=== PATIENT | female | born 1950 | race Caucasian/White ===

== ENCOUNTER → 2021-09-09 | Outpatient (CLI) | payer MEDICARE ==
[2021-09-09 18:51] LABS: Basophils # (A) 0.09 X 10*3/uL (0.00-0.10); Basophils % (A) 1.2 %; Eosinophils # (A) 0.26 X 10*3/uL (0.04-0.35); Eosinophils % (A) 3.5 %; HCT 46.7 % (37.2-46.3); HGB 15.1 g/dL (12.0-15.0); Immature Grans, Automated 0.1 %; Lymphocytes # (A) 2.69 X 10*3/uL (0.90-5.00); Lymphocytes % (A) 36.6 %; MCH 30.3 pg (27.0-32.0); MCHC 32.3 g/dL (32.0-37.0); MCV 93.8 fL (80.0-97.0); Monocytes # (A) 0.57 X 10*3/uL (0.20-1.00); Monocytes % (A) 7.8 %; NRBC Per 100 WBC 0 /100 WBCS (0.0-0.0); Neutrophils # (A) 3.72 X 10*3/uL (1.80-7.70); Neutrophils % (A) 50.8 %; Platelet Count 305 X 10*3/uL (140-440); RBC 4.98 X 10*6/uL (4.10-5.20); RDW 12.7 % (11.5-14.5); WBC 7.34 X 10*3/uL (4.50-10.00)
[2021-09-09 19:04] LABS: Anion Gap 13.9 mmol/L (10.00-18.00); Blood Urea Nitrogen 10.2 mg/dL (9.0-27.0); Carbon Dioxide 21.1 mmol/L (20.0-27.5); Non-African American GFR(CKD) 94.9 (60.0-200.0); Potassium 3.9 mmol/L (3.5-5.5)
== END | disposition home or self-care (01) ==
LOC: LABPAT 10:51
PROVIDERS: ATTEND Surgery
DX: Z01.812 Encounter for preprocedural laboratory examination (principal); I99.8 Other disorder of circulatory system
CPT/HCPCS: 80051; 82565; 84520; 85025

== ENCOUNTER → 2021-09-12 | Day surgery (SDC) | payer MEDICARE ==
[2021-09-08 12:10] VITALS: BMI 26.5
[~2021-09-12] MED LIST: ALPRAZolam 0.25 MG TAB PO PRN; ASPIRIN 325 MG TAB PO PRN; HEPARIN SODIUM 1,000 UN/ML (10ML VL) IV ONE; HEPARIN SODIUM 1,000 UN/ML (10ML VL) ONE; IOPAMIDOL-370 100ML BTL INJ ONE; LIDOCAINE 1% INJ 10MG/ML (20 ML MDV) SQ ONE; MIDAZOLAM 2 MG/2 ML VIAL IV ONE; SODIUM CHLORIDE 0.9% 1,000 ML in EMPTY BAG 1 BAG IV ONE; fentaNYL (PF) 50 MCG/ML 2 ML AMP IV ONE; fentaNYL (PF) 50 MCG/ML 2 ML AMP ONE
[2021-09-12 07:18] LABS: Glucose,Whole Blood 122 mg/dL (75-99)
[2021-09-12 07:21] VITALS: RESP 18; TEMP 98
[2021-09-12 07:40] LABS: Basophils # (A) 0.1 k/uL (0-0.2); Basophils % (A) 1 %; Eosinophils # (A) 0.3 k/uL (0-0.7); Eosinophils % (A) 4 %; HGB 15.3 gm/dL (11.4-16.0); Lymphocytes # (A) 2.1 k/uL (1.0-4.8); Lymphocytes % (A) 27 %; MCH 31.4 pg (25.0-35.0); MCHC 33.2 g/dL (31.0-37.0); MCV 94.6 fL (80.0-100.0); Mean Platelet Volume 7.9; Monocytes # (A) 0.4 k/uL (0-1.0); Monocytes % (A) 6 %; Neutrophils # (A) 4.7 k/uL (1.3-7.7); Neutrophils % (A) 62 %; Platelet Count 278 k/uL (150-450); RBC 4.86 m/uL (3.80-5.40); RDW 12.6 % (11.5-15.5); WBC 7.7 k/uL (3.8-10.6)
[2021-09-12 07:56] LABS: African American GFR (CKD) >90 (>60 ml/min/1.73 sqM); Anion Gap 9 mmol/L; Blood Urea Nitrogen 16 mg/dL (7-17); Calcium 10.1 mg/dL (8.4-10.2); Carbon Dioxide 24 mmol/L (22-30); Chloride 104 mmol/L (98-107); Glucose 133 mg/dL (74-99); Non-African American GFR(CKD) >90 (>60 ml/min/1.73 sqM); Potassium 3.6 mmol/L (3.5-5.1); Sodium 137 mmol/L (137-145)
[2021-09-12] MEDS: fentaNYL (PF) 50 MCG/ML 2 ML AMP IV ONE ×2 (08:32→08:55)
[2021-09-12] MEDS: MIDAZOLAM 2 MG/2 ML VIAL IV ONE ×2 (08:33→08:58)
--- NOTE | 2021-09-12 09:52 | IR ---
Fluoroscopy HISTORY: Peripheral vascular occlusive disease 8.2 minutes fluoroscopy time supplied to the referring clinician. 350 intraoperative C-arm images do cument the procedure. See dictated report from vascular surgery.
--- NOTE | 2021-09-12 09:53 | P.OP ---
Date of Procedure: 09/12/21 Description of Procedure: Pre-Op Dx: Right lower extremity claudication/ischemia [place] classification 5 Post-Op Dx: Same, resolved SFA occlusion, TPT occlusion Procedure: 1. Ultrasound guided left femoral artery access 2. Right lower extremity selective angiogram 3. Percutaneous directional atherectomy of right superficial femoral artery with Hawk One device 4. Percutaenous balloon angioplasty with 5 x 80 mm Impact drug eluding balloon 5. Percutaneous closure of left femoral artery with Vascade device Surgeon: Shin Gaines DO Anesthesia: conscious sedation with local x 40 mins EBL: Less than 5 mL Complications: none Condition: Stable Findings: Occlusion of the right superficial femoral artery with reconstitution of the above knee SFA/popliteal artery. There was also occlusion of the TPT trunk with multiple collaterals filling the anterior tibial and posterior tibial artery to the ankle. Indication for procedure: 70-year-old female originally presented to the office secondary to pain in her right lower extremity/foot which onset was in June. She noticed having some distal toe ischemia as well as erythema of her foot to the point where she was unable to ambulate. She was seen by Dr. Munguia and was taken for an angiogram which demonstrated occlusion of the right superficial femoral artery as well as occlusion of the TPT trunk with multiple collateralization filling of the ankle. She presents today for endovascular intervention to improve her inflow through the SFA. Operative narrative: After written and informed consent was obtained the patient all risks, benefits and complications were described patient is brought to the Staff[facility] and laid supine position. The area of the left groin was prepped and draped in usual sterile fashion. Timeout was performed in normal fashion. Utilizing ultrasound the left femoral artery was accessed and a 6 F sheath was placed. 035 Glidewire was then placed into the aorta followed by an RBI catheter and the right iliac was accessed in an up and over fashion. Selective angiogram was then obtained of the right lower extremity demonstrating occlusion of the superficial femoral artery with reconstitution distally roughly 80 mm of occlusion. There was also occlusion of the TPT trunk with multiple collateralization filling to the anterior tibial and posterior tibial arteries separately without any delineation of the trifurcation. Patient was given heparin and followed with ACTs. An 035 Glidewire advantage was then placed in an up and over fashion and the 6 F short sheath was removed and replaced with an up and over 6 F sheath. Selective angiogram was again obtained demonstrating occlusion of the right superficial femoral artery. Utilizing 035 Glidewire and quick cross catheter the lesion was crossed and selective angiogram distally was obtained demonstrating good intraluminal access. Once across a 5 spider filter was placed and utilizing a 6 Hawk one atherectomy device directional atherectomy was performed with multiple passes. Once completed angiogram was obtained demonstrating improvement of the stenotic area. Balloon angioplasty was then performed with a 5 x 80 mm drug-eluting balloon. Final angiogram demonstrated b risk flow through the superficial femoral artery with resolution of the stenosis. All guidewires and catheters were then removed the sheath was removed and replaced with a short 6 F sheath and utilizing a Vascade closure device the access was closed. Pressure was placed for hemostasis. The patient tolerated the procedure well and had nonpalpable pulses with multiphasic signal noted in the posterior tibial artery and anterior tibial artery and was sent to recovery. Plan - Discharge Summary Discharge Rx Participant: Yes New Discharge Prescriptions: No Action Aspirin 325 mg PO DAILY PRN PRN Reason: Per Protocol metFORMIN HCL 500 mg PO BID Discharge Medication List metFORMIN HCL 500 mg PO BID 09/08/21 [History] Aspirin 325 mg PO DAILY PRN 09/12/21 [History] Follow up Appointment(s)/Referral(s): Shin Gaines DO [STAFF PHYSICIAN] - 2 Weeks Discharge Disposition: HOME SELF-CARE
[2021-09-12 14:06] VITALS: BP 163/76; PULSE 64
== END | disposition home or self-care (01) ==
LOC: CATHCVL 06:32
PROVIDERS: ATTEND Surgery
DX: E11.51 Type 2 diabetes mellitus with diabetic peripheral angiopathy without gangrene (principal); I70.213 Atherosclerosis of native arteries of extremities with intermittent claudication, bilateral legs; Z79.84 Long term (current) use of oral hypoglycemic drugs; Z87.891 Personal history of nicotine dependence; Z98.51 Tubal ligation status; Z98.890 Other specified postprocedural states; Z83.3 Family history of diabetes mellitus
CPT/HCPCS: 37225; 75710; 80048; 85025; C1894 ×2; C1769 ×3; C1887; C1714; C1884; C2623; C1760; J2250; J2001; J3010; J1644; Q9967